=== PATIENT | male | born 1965 | race Caucasian/White ===

== ENCOUNTER 2024-07-11 07:28 | Emergency (ER) | payer OTHER, SELFPAY ==
[2024-07-11 07:32] VITALS: BP 141/92
--- NOTE | 2024-07-11 08:06 | ED.GENMED ---
History of Present Illness
General
Chief Complaint: Chest Pain
Source: patient
Time Seen by Provider: 07/11/24 07:54
History of Present Illness
History of Present Illness:
58-year-old male with past medical history of hyperlipidemia presents to the ER for evaluation of a discomfort in his chest that he developed last night after he finished playing basketball stating that it was not a pain but more of an abnormal
sensation and he also felt a little numbness in the left side of his jaw which he states he still has presently. Patient has been seen multiple times in this emergency department as well as by his equipment specialist with no specific etiology found. He
reports that he last had a stress test and echocardiogram about a year or so ago which was reportedly unremarkable. Patient denies any shortness of breath, palpitations, diaphoresis, exertional dyspnea, orthopnea, PND, lower extremity edema, cough,
fevers or recent illnesses or any other concerns.
Past History
Past History
ED Past Medical History: Hypercholesterolemia
ED Past Surgical History: Orthopedic
Social History
Tobacco: Non-smoker
Alcohol: Occasional
Drug: None
Personal:
Living: with family
Review of Systems
Review of Systems
All Other Systems: ROS reviewed and negative except as documented in HPI and ROS
Phy Exam
Physical Exam
Physical Exam:
GENERAL: Alert , in no apparent distress
EYE: conjunctiva clear
NECK: Supple
ENT: o/p clr, mmm.
CARDIAC: Regular rate and rhythm, no murmur
LUNGS: Clear breath sounds bilaterally, no acute respiratory distress, no wheezes/rales/rhonchi
NEUROLOGICAL: Alert and oriented
SKIN: Warm and dry, skin intact.
MUSCULOSKELETAL: well perfused.
PSYCH: Normal and appropriate interaction.
Scores
Heart Failure Risk
Heart Failure Risk Score: Not Applicable
Heart Score for Chest Pain Patients
STEMI patient?: No
History: Slightly or Non-Suspicious
ECG: Normal
Age: >45 - <65 years
Risk Factors: 1 or 2 Risk Factors
Troponin: </= Normal Limit
Heart Score for Chest Pain Patients: 2
Heart Score Risk: 2.5% MACE over next 6 weeks
Withdrawal Assessment of Alcohol
Withdrawal Assessment Completed?: Not applicable
Course
Orders/Labs/Results
Orders:
Orders
07/11/24 07:28
EKG [Electrocardiogram (*1)] Urgent
Reason for Study: Chest Pain
07/11/24 07:29
EKG- Treatment ONCE
07/11/24 08:04
CR Chest - 2 Views Urgent
Comment:
Reason For Exam: chest discomfort
07/11/24 08:21
Complete Blood Count/With Diff Urgent
07/11/24 09:01
Comprehensive Metabolic Panel Urgent
07/11/24 09:34
Troponin I Urgent
07/11/24 12:30
Troponin I Urgent
Abnormal Lab Results
07/11/24 07/11/24
08:21 09:01
Absolute Lymphs (auto) 1.1 L 10^3/uL
(1.2-3.4)
Monocytes % 11.8 H %
(1.7-9.3)
Glucose 100 H mg/dl
(70-99)
ALT 63 H U/L
(0-50)
07/11/24 08:21
07/11/24 09:01
Vital Signs
Initial and Last Documented VS:
Initial Vital Signs
Temp Pulse Resp BP Pulse Ox
98.7 F 69 20 141/92 97
07/11/24 07:32 07/11/24 07:32 07/11/24 07:32 07/11/24 07:32 07/11/24 07:32
Last Documented Vital Signs
Temp Pulse Resp BP Pulse Ox
98.7 F 73 15 135/85 97
07/11/24 07:32 07/11/24 13:15 07/11/24 13:15 07/11/24 13:00 07/11/24 13:15
MDM/Problems Addressed
Differential Diagnosis Includes:
Atypical chest pain/ACS, GERD/gastritis, pleurisy/costochondritis, PE, pneumothorax, 520
MDM/Problems Addressed:
58-year-old male presenting to the ER for evaluation of chest discomfort that began last night after he had finished playing basketball, no pain while playing. Similar symptoms in the past without any specified etiology. Patient has had multiple
stress tests and echocardiograms for similar pain with no etiology found. Patient does have risk factors for ACS including family history with father having CABG at the age of 70 and a personal history of hyperlipidemia. Will check labs, chest
x-ray and troponin with plan to repeat a 3-hour troponin. Disposition pending.
*Pulse Oximetry
Patient hypoxic: no
*EKG
Heart Rate: 75
Rate: normal
Rhythm: sinus
[place]: normal axis
Ischemia: no ischemia
*Facilities Maintenance Worker Interpretation
Rate: normal
Rhythm: sinus
*Critical Care Note
Total Time (30-74mins, 75-104mins- exclusive of procedures): Not Applicable
Data Reviewed
Review of Other/Old Records Reveals: Records
Patient Management
Escalation/DeEscalation of care consider admission/obs:
Patient's repeat troponin negative. His symptoms have mostly resolved. At this time I do think it is reasonable for patient to be discharged home especially given that he has been worked up for this as an outpatient before with no specified
etiology. He will follow-up with his equipment specialist. Aware of return precautions to the ER.
ED Attending Note
-
Portions of this chart may have been created with voice recognition software.� Occasional wrong word or��sound alike� substitutions may have occurred due to the inherent limitations of voice recognition software.
Discharge Plan
Departure
Patient Disposition: Home (Routine Discharge)
Date of Disposition: 07/11/24
Time of Disposition: 13:09
Patient with high blood pressure during this ER visit?: Yes
Discharge Problem:
Chest pressure
Instructions: Chest Pain NON-[facility] Casting Assistant Follow Up
Referrals:
Moy Casanova MD [Family Provider] -
Interventions
Interventions:
*Risk Screen - Suicide Last Done: 07/11/24 07:36
*General Assessment Last Done: 07/11/24 07:36
*Neglect/Abuse Screening Last Done: 07/11/24 07:36
*ED- Fall Risk Assessment Last Done: 07/11/24 13:37
*ED COVID-19 Vaccine History Last Done: 07/11/24 07:36
*Nursing Disposition Last Done: 07/11/24 13:37
ED- Cardiac Assessment Last Done: 07/11/24 08:32
Discharge Date and Time
Print Language: DIVEHI
[2024-07-11 08:47] LABS: % Basophils 0.2 % (0-2); % Eosinophils 0.4 % (0-6); % Immature Granulocytes 0.2 % (0-0.5); % Lymphocytes 22.2 % (20.5-51.1); % Monocytes 11.8 % (1.7-9.3); % Neutrophils 65.2 % (42.2-75.2); Absolute Lymphocytes 1.1 10^3/uL (1.2-3.4); Absolute Monocytes 0.6 10^3/uL (0.1-0.6); Absolute Neutrophils 3.3 10^3/uL (1.4-6.5); Hematocrit 42.5 % (39.0-52.0); Hemoglobin 14.7 g/dL (13.0-18.0); Mean Corp Hgb Conc. 34.6 g/dL (33.0-37.0); Mean Corpuscular Hgb 30.4 pg (27.0-31.0); Nucleated Red Blood Cells % 0 % (-); Platelet Count 173 10^3/uL (130-400); Red Blood Cell Count 4.83 10^6/uL (4.70-6.10); Red Cell Dist. Width 12.8 % (11.5-14.5); White Blood Cell Count 5.1 10^3/uL (4.8-10.8)
[2024-07-11 08:58] VITALS: BP 136/90
[2024-07-11 09:00] VITALS: BP 132/85
[2024-07-11 10:02] LABS: ALT (SGPT) 63 U/L (0-50); AST (SGOT) 41 U/L (17-59); Albumin 4.2 g/dl (3.5-5.0); Alkaline Phosphatase 61 U/L (38-126); Blood Urea Nitrogen 15 mg/dl (9-20); Calcium 9.4 mg/dl (8.4-10.2); Carbon Dioxide 27 mmol/L (22-30); Chloride 107 mmol/L (98-107); Glucose 100 mg/dl (70-99); Potassium 4.3 mmol/L (3.5-5.1); Sodium 143 mmol/L (135-145); Total Bilirubin 1.2 mg/dl (0.2-1.3); Total Protein 6.8 g/dl (6.3-8.2); eGFR > 60.00
[2024-07-11 10:12] LABS: Troponin I < 0.012 ng/ml
[2024-07-11 11:20] VITALS: BP 129/78
[2024-07-11 12:00] VITALS: BP 143/85
[2024-07-11 13:00] VITALS: BP 135/85
[2024-07-11 13:08] LABS: Troponin I < 0.012 ng/ml
== END 2024-07-11 13:38 | disposition home or self-care (01) ==
LOC: EMR 07:28
PROVIDERS: Physician Assistant Medical; EMERGENCY PHYSICIAN Emergency Medicine; FAMILY PHYSICIAN Internal Medicine
DX: R07.89 Other chest pain (principal); R03.0 Elevated blood-pressure reading, without diagnosis of hypertension; E78.00 Pure hypercholesterolemia, unspecified; E78.5 Hyperlipidemia, unspecified
CPT/HCPCS: 99285; 71046; 80053; 84484; 85025; 93005; 99283